=== PATIENT | male | born 1995 | race Two or more races ===

== ENCOUNTER 2022-07-12 11:54 | Emergency (ER) | payer OTHER ==
[~2022-07-12] VITALS: Ht 180.3 cm; Wt 77.1 kg
[2022-07-12] MEDS ORDERED: APRESOLINE 10MG10 MG (12:00)
[2022-07-12] MEDS ORDERED: PRILOSEC OTC20 MG (12:01)
[2022-07-12] MEDS ORDERED: ISOSORBIDE DINI30 MG (12:01)
[2022-07-12] MEDS ORDERED: METOCLOPRAMIDE (12:02)
[2022-07-12] MEDS ORDERED: MILLIPRED5 MG (12:02)
[2022-07-12] MEDS ORDERED: ZOVIRAX400 MG (12:02)
[2022-07-12] MEDS ORDERED: REGLAN5 MG/5 ML (12:03)
[2022-07-12] MEDS ORDERED: CARVEDILOL12.5 MG (12:03)
== END 2022-07-12 22:09 | disposition home or self-care (01) ==
LOC: ER 11:54
DX: E86.0 Dehydration (principal); R11.10 Vomiting, unspecified; C91.91 Lymphoid leukemia, unspecified, in remission